=== PATIENT | female | born 1985 | race Hispanic/Latino ===

== ENCOUNTER 2021-01-22 11:58 | Emergency (ER) | payer OTHER ==
[~2021-01-22] VITALS: Ht 167.6 cm; Wt 136.1 kg
--- OUTSIDE RECORDS SUMMARY | 2021-01-22 12:06 | XMS ---
PreManage Notification: ARIANA MOTA Security [employer] Events No recent Security Events currently on file CRITERIA MET - JINA-19 Positive Lab Results - [facility] - 2 Visits in 30 Days CARE PROVIDERS [facility] Current PHONE: [phone] Kellie has no Care Guidelines for this patient. Rudolph. VISIT COUNT (12 MO.) 2 [facility] Adelaida Munoz [address] [place] [address] TOTAL 3 NOTE: Visits indicate total known visits. ED/UCC VISIT TRACKING (12 MO.) 01/22/2021 11:59 KENNA Salgado TYPE: Emergency COMPLAINT: - FLU SYMPTOMS, FEVER, CHILLS, VOMITING [facility] DIAGNOSES: - Chills - Contact with and (suspected) exposure to covid-19 - chills, SAINZ - Fever (9 Weeks To 74 Years) [facility]2020 [facility] DIAGNOSES: - Cutaneous abscess, unspecified - abscess INPATIENT VISIT TRACKING (12 MO.) 02/16/2020 14:[address] Adelaida DISLA TYPE: Mother Baby Unit DIAGNOSES: - Vaginal Bleeding - Non-stress Test - Encounter for routine follow-up [email or web address]
[2021-01-22] MEDS ORDERED: ONDANSETRON ODT4 MG PO (13:16)
[2021-01-23] MEDS ORDERED: GUAIFENESIN AC473 ML PO (20:10)
== END 2021-01-22 16:10 | disposition home or self-care (01) ==
LOC: ED 11:58
DX: U07.1 COVID-19 (principal)
CPT/HCPCS: 96374; 96375; 99283-25; J1885; J2405; J7030

== ENCOUNTER 2023-12-20 11:27 | Emergency (ER) | payer OTHER ==
[~2023-12-20] VITALS: Ht 167.6 cm; Wt 126.1 kg
[~2023-12-20 11:27] MED LIST: BACTRIM DS TAB1 EACH PO; GUAIFENESIN AC473 ML PO; ONDANSETRON ODT4 MG PO
[2023-12-20] MEDS ORDERED: CEFTRIAXONE/SODIUM CHLORIDE 2 GM/100 ML PIGGYBACK IV ONE (11:45)
[2023-12-20 11:59] LABS: BASOPHILS 0.5 % (0-2); EOSINOPHILS 0.9 % (0-6); HEMATOCRIT 40.6 % (35.0-50.0); HEMOGLOBIN 13.6 g/dL (12.0-18.0); LYMPHOCYTES 14.6 % (24-44); MCH 28.2 (27-36); MCHC 33.6 g/dl (30-36); MONOCYTES 9.3 % (0-12); NEUTROPHILS 74.7 % (39-80); PLATELET COUNT 380 K/uL (140-440); RBC 4.84 M/ul (4.3-5.7); RDW 14.5 (10.5-15.0)
[2023-12-20 12:14] LABS: ALBUMIN 3.5 g/dL (3.4-5.0); ALBUMIN/GLOBULIN RATIO 0.8 (1.1-2.4); ANION GAP 14.7 (7-21); BILIRUBIN, TOTAL 0.7 ng/dL (0.2-1.0); BUN/CREATININE RATIO 21.17 (6.0-28.6); CALCIUM 9.2 mg/dL (8.5-10.1); CREATININE, SERUM 0.85 mg/dL (0.55-1.02); POTASSIUM 3.7 mmol/L (3.5-5.1); PROTEIN, TOTAL 7.9 g/dL (6.4-8.2)
[2023-12-20] MEDS ORDERED: CEPHALEXIN500 M1 PO (12:15)
[2023-12-20 12:37] VITALS: BP 109/62
== END 2023-12-20 12:37 | disposition home or self-care (01) ==
LOC: ED 11:27
PROVIDERS: Emergency Medicine
DX: L03.115 Cellulitis of right lower limb (principal)
CPT/HCPCS: 36415; 80053; 85025; 85379; 96365; 99283-25; J0696

== ENCOUNTER 2024-12-13 22:27 | Emergency (ER) | payer OTHER ==
[~2024-12-13] VITALS: Ht 167.6 cm; Wt 130.9 kg
[~2024-12-13 22:27] MED LIST changes: +CEPHALEXIN500 M1 PO
[2024-12-13 22:53] LABS: BASOPHILS 0.4 % (0.1-1.2); EOSINOPHILS 2.0 % (0.7-5.8); LYMPHOCYTES 26.2 % (19.3-51.7); MCH 27.9 PG (25.6-32.2); MCHC 33.1 g/dL (32.2-35.5); MCV 84.5 fL (79.4-94.8); MONOCYTES 7.9 % (4.7-12.5); NEUTROPHILS 63.2 % (34.0-71.1); RBC 4.58 M/uL (3.93-5.22)
[2024-12-13] MEDS ORDERED: LACTATED RINGER'S 1,000 ML IV ONE (23:00)
[2024-12-13 23:09] LABS: ALCOHOL, MEDICAL 4 ng/dL (<3); ALT (SGPT) 23 U/L (14-59); AST (SGOT) 17 U/L (15-37); GLOMERULAR FILTRATION RATE,EST 104 mL/min (>60); PROTEIN, TOTAL 7.5 g/dL (6.4-8.2); UREA NITROGEN 14 mg/dL (7-18)
[2024-12-13 23:22] LABS: ABO A; ANTIBODY SCREEN NEGATIVE; RH POSITIVE
[2024-12-14] MEDS ORDERED: PERCOCET 5-3251 EACH PO (00:15)
[2024-12-14] MEDS ORDERED: OXYCODONE/ACETAMINOPHEN 1 TAB HOME.PACK PO ONE (00:15)
[2024-12-14] MEDS ORDERED: DIPHTH,PERTUSS(ACELL),TET VAC 0.5 ML SYRINGE IM ONE (00:15)
[2024-12-14 01:23] VITALS: BP 128/78
--- NOTE | 2024-12-14 23:12 | EKG ---
[facility] [address] [facility] [place] [address] Signed Normal sinus rhythm Normal ECG No previous ECGs available Confirmed by Yadi Razo MD () on 12/14/2024 11:12:39 PM Electronically Signed By: YADI RAZO MD 12/14/24 2312 PATIENT NAME: ARIANA MOTA Electrocardiogram DATE OF : 85 PHYSICIAN: YADI RAZO MD REPORT #: [id number] REPORT IS CONFIDENTIAL AND NOT TO BE RELEASED WITHOUT AUTHORIZATION
== END 2024-12-14 01:29 | disposition home or self-care (01) ==
LOC: ED 22:27
PROVIDERS: Internal Medicine
DX: S42.032A Displaced fracture of lateral end of left clavicle, initial encounter for closed fracture (principal); Z79.2 Long term (current) use of antibiotics; S00.03XA Contusion of scalp, initial encounter; S20.219A Contusion of unspecified front wall of thorax, initial encounter; S30.1XXA Contusion of abdominal wall, initial encounter; V89.2XXA Person injured in unspecified motor-vehicle accident, traffic, initial encounter
CPT/HCPCS: 36415; 70450; 71260; 72125; 73030; 74177; 80053; 80307; 84702; 85025; 86850; 86900; 86901; 90471; 90715; 93005; 93010; 99285-25; G0480; J7121; Q9967